=== PATIENT | female | born 1940 | race Caucasian/White ===

== ENCOUNTER 2018-08-08 18:08 | Observation (INO) ==
[2018-08-08] MEDS ORDERED: SODIUM CHLORIDE 0.9% 500 ML IV STA (18:57)
[2018-08-08 19:15] LABS: Basophils % 0.2 % (0.0-0.8); Eosinophils # 0.1 10*3/uL (0.0-0.87); Eosinophils % 1.7 % (0.00-10.9); Hematocrit 36.5 VOL% (35.7-47.0); Hemoglobin 12.1 GM/DL (12.0-16.0); Immature Granulocytes % 0.3 %; Immature Granulocytes Absolute 0.02 #; Lymphocytes # 1.7 10*3/uL (1.4-4.0); Lymphocytes % 25.7 % (21.3-54.2); Mean Corpuscular HGB Conc 33.2 GM/DL (32-36); Mean Corpuscular Hemoglobin 32 PG (27-34); Mean Corpuscular Volume 97.6 FL (87-102); Mean Platelet Volume 10.3 FL (9.6-12.0); Monocytes # 0.4 10*3/uL (0.11-0.8); Neutrophils # 4.4 10*3/uL (1.4-7.4); Neutrophils % 66.1 % (38.7-73.9); Platelet Count 166 T/CUMM (130-400); Red Blood Count 3.74 MC/CUMM (3.8-5.5); Red Cell Distribution Width 12.4 % (9.3-17.3); White Blood Count 6.6 T/CUMM (4-12)
[2018-08-08 19:18] LABS: Apearance,Urine CLEAR (Clear); Bacteria,Urine Occasional /HPF (Few); Bilirubin,Urine Negative (Negative); Blood, Urine Negative (Negative); Glucose,Urine (UA) Negative (Negative); Ketones,Urine Negative (Negative); Nitrite,Urine Negative (Negative); Protein,Urine Negative; RBC,Urine <1 /HPF (0-4); Urine Color Yellow (Yellow); WBC,Urine 1 /HPF (0-6)
[2018-08-08 19:24] LABS: INR 0.9; PT Patient Result 10.1 SECS
[2018-08-08 19:25] LABS: Alanine Aminotransferase 14 U/L (13-56); Albumin 3.9 G/DL (3.4-5.0); Alkaline Phosphatase 74 U/L (45-117); Aspartate Amino Transferase 14 U/L (0-37); Barbiturates Screen,Urine Negative (Negative); Benzodiazepines Screen,Urine Negative (Negative); Blood Urea Nitrogen 19 MG/DL (7-18); Calcium 9.4 MG/DL (8.5-10.1); Cannabinoid Screen,Urine Negative (Negative); Glucose 81 MG/DL (74-106); Opiate Screen,Urine Negative (Negative); Osmolality,Calculated 279.4 MOS/KG (273-304); Phencyclidine Screen,Urine Negative (Negative); Potassium 3.4 MMOL/L (3.5-5.1); Sodium 140 MMOL/L (136-145); Total Protein 7.2 G/DL (6.4-8.3)
[2018-08-08] MEDS ORDERED: ONDANSETRON 4 MG/2 ML VIAL IV PRN (21:23)
[2018-08-08] MEDS ORDERED: LABETALOL 20 MG/4 ML SYRINGE IV PRN (21:27)
[2018-08-08] MEDS ORDERED: ENOXAPARIN 30 MG/0.3 ML SYRINGE SUBCUT SCH (21:30)
[2018-08-08 21:48] LABS: Risk Ratio 2.07; VLDL CHOLESTEROL 20.8 MG/DL
[2018-08-08] MEDS: SODIUM CHLORIDE 0.9% 1,000 ML IV SCH (22:50)
[2018-08-09 04:51] LABS: Basophils % 0.2 % (0.0-0.8); Eosinophils % 0.3 % (0.00-10.9); Hematocrit 32.7 VOL% (35.7-47.0); Hemoglobin 11.1 GM/DL (12.0-16.0); Immature Granulocytes % 0.3 %; Immature Granulocytes Absolute 0.03 #; Lymphocytes # 1.6 10*3/uL (1.4-4.0); Lymphocytes % 18.2 % (21.3-54.2); Mean Corpuscular HGB Conc 33.9 GM/DL (32-36); Mean Corpuscular Hemoglobin 33 PG (27-34); Mean Corpuscular Volume 95.6 FL (87-102); Monocytes # 0.6 10*3/uL (0.11-0.8); Monocytes % 6.4 % (1.7-12.7); Neutrophils # 6.5 10*3/uL (1.4-7.4); Neutrophils % 74.6 % (38.7-73.9); Platelet Count 152 T/CUMM (130-400); Red Blood Count 3.42 MC/CUMM (3.8-5.5); Red Cell Distribution Width 12.1 % (9.3-17.3); White Blood Count 8.7 T/CUMM (4-12)
[2018-08-09 05:08] LABS: Calcium 8.1 MG/DL (8.5-10.1); Osmolality,Calculated 281.3 MOS/KG (273-304); Potassium 3.4 MMOL/L (3.5-5.1)
[2018-08-09] MEDS ORDERED: ASPIRIN EC 81 MG TABLET PO SCH ×2 (09:00)
[2018-08-09] MEDS ORDERED: POTASSIUM CHLORIDE 10 MEQ TABLET PO SCH (09:00)
[2018-08-09] MEDS ORDERED: DICYCLOMINE 10 MG CAPSULE PO SCH (09:00)
[2018-08-09] MEDS ORDERED: NON-FORMULARY MEDICATION (Omeprazole [Omeprazole] 20 MG) PO SCH (09:00)
[2018-08-09] MEDS ORDERED: PANTOPRAZOLE 40 MG VIAL IV SCH (09:00)
[2018-08-09] MEDS: SODIUM CHLORIDE 0.9% 1,000 ML IV SCH (09:16)
[2018-08-09 16:27] VITALS: BP 157/61
[2018-08-09] MEDS ORDERED: CHOLECALCIFEROL 1,000 UNIT TABLET PO SCH (21:00)
[2018-08-09] MEDS ORDERED: ESCITALOPRAM 10 MG TABLET PO SCH (21:00)
[2018-10-02] MEDS ORDERED: DENOSUMAB 60 MG/ML SYRINGE SUBCUT SCH (09:00)
== END 2018-08-09 18:00 ==
LOC: N.EDINP 18:08 → N.ED 18:08 → N.5E 21:50
PROVIDERS: ADMIT Internal Medicine; ATTEND Internal Medicine

== ENCOUNTER 2019-03-21 12:14 | Inpatient (IN) ==
[2019-03-21] MEDS ORDERED: SODIUM CHLORIDE 0.9% 1,000 ML IV STA (13:16)
[2019-03-21 13:33] LABS: Apearance,Urine CLEAR (Clear); Bilirubin,Urine Negative (Negative); Blood, Urine Negative (Negative); Glucose,Urine (UA) Negative (Negative); Hyaline Casts,Urine 1 /LPF (0-3); Ketones,Urine Negative (Negative); Mucus,Urine Occasional /LPF (Occasional); Nitrite,Urine Negative (Negative); Protein,Urine 30 MG/DL; RBC,Urine 1 /HPF (0-4); Squamous Epithelial Cell,Urine Occasional /HPF (0-10); Urine Color Yellow (Yellow); Urine Specific Gravity 1.019 (1.001-1.035); Urine Urobilinogen < 2.0 EU/DL (0.2-1.0); WBC,Urine 1 /HPF (0-6)
[2019-03-21 13:45] LABS: Barbiturates Screen,Urine Negative (Negative); Benzodiazepines Screen,Urine Negative (Negative); Cannabinoid Screen,Urine Negative (Negative); Opiate Screen,Urine Negative (Negative); Phencyclidine Screen,Urine Negative (Negative)
[2019-03-21 16:46] LABS: Basophils % 0.1 % (0.0-0.8); Eosinophils # 0.1 10*3/uL (0.0-0.87); Eosinophils % 0.6 % (0.00-10.9); Hematocrit 40.7 VOL% (35.7-47.0); Hemoglobin 13.9 GM/DL (12.0-16.0); Immature Granulocytes % 0.3 %; Immature Granulocytes Absolute 0.03 #; Lymphocytes # 2.3 10*3/uL (1.4-4.0); Lymphocytes % 20.5 % (21.3-54.2); Mean Corpuscular HGB Conc 34.2 GM/DL (32-36); Mean Corpuscular Volume 96.2 FL (87-102); Mean Platelet Volume 11.2 FL (9.6-12.0); Monocytes % 4.6 % (1.7-12.7); Neutrophils % 73.9 % (38.7-73.9); Platelet Count 201 T/CUMM (130-400); Red Blood Count 4.23 MC/CUMM (3.8-5.5); White Blood Count 11.4 T/CUMM (4-12)
[2019-03-21 16:52] LABS: INR 0.9; PT Patient Result 10.2 SECS (9.6-12.2); Partial Thromboplastin Time 25.9 SECS (20.8-36.0)
[2019-03-21 17:00] LABS: Alanine Aminotransferase 23 U/L (13-56); Albumin 4.2 G/DL (3.4-5.0); Alkaline Phosphatase 62 U/L (45-117); Aspartate Amino Transferase 18 U/L (0-37); Blood Urea Nitrogen 30 MG/DL (7-18); Estimated Glom Filtration Rate 32 ML/MIN; Glucose 94 MG/DL (74-106); Osmolality,Calculated 286.3 MOS/KG (273-304); Total Protein 7.1 G/DL (6.4-8.3)
[2019-03-21] MEDS ORDERED: ONDANSETRON 4 MG/2 ML VIAL IV PRN (17:02)
[2019-03-21] MEDS ORDERED: LABETALOL 20 MG/4 ML SYRINGE IV PRN (17:02)
[2019-03-21] MEDS ORDERED: SODIUM CHLORIDE 0.9% 1,000 ML IV SCH (17:30)
[2019-03-21 17:41] LABS: VLDL CHOLESTEROL 32.8 MG/DL
[2019-03-21] MEDS: ATORVASTATIN 80 MG TABLET PO SCH (20:13)
[2019-03-21] MEDS: SODIUM CHLORIDE 0.9% 1,000 ML IV SCH (20:33)
[2019-03-21] MEDS ORDERED: INFLUENZA VIRUS VACCINE 0.5 ML SYRINGE IM ONE (23:41)
[2019-03-22] MEDS: SODIUM CHLORIDE 0.9% 1,000 ML IV SCH ×2 (05:19→16:36)
[2019-03-22] MEDS: LEVOTHYROXINE 25 MCG TABLET PO SCH (05:52)
[2019-03-22 06:50] LABS: Basophils % 0.1 % (0.0-0.8); Eosinophils % 0.2 % (0.00-10.9); Hematocrit 33.5 VOL% (35.7-47.0); Immature Granulocytes % 0.2 %; Immature Granulocytes Absolute 0.02 #; Lymphocytes # 1.9 10*3/uL (1.4-4.0); Lymphocytes % 20.9 % (21.3-54.2); Mean Corpuscular HGB Conc 34.6 GM/DL (32-36); Mean Corpuscular Volume 93.6 FL (87-102); Monocytes % 6.4 % (1.7-12.7); Neutrophils % 72.2 % (38.7-73.9); Platelet Count 174 T/CUMM (130-400); Red Blood Count 3.58 MC/CUMM (3.8-5.5); Red Cell Distribution Width 12.7 % (9.3-17.3); White Blood Count 8.9 T/CUMM (4-12)
[2019-03-22 06:54] LABS: Hemoglobin 11.6 GM/DL (12.0-16.0)
[2019-03-22 06:59] LABS: Albumin 3.2 G/DL (3.4-5.0); Bilirubin,Total 1.9 MG/DL (0.2-1.0); Calcium 8.4 MG/DL (8.5-10.1); Osmolality,Calculated 282.4 MOS/KG (273-304); Thyroid Stimulating Hormone 1.36 uIU/ml (0.358-3.74)
[2019-03-22] MEDS ORDERED: MAGNESIUM SULF RIDER 4 GM in PREMIX 1 EACH IV PRN (07:20)
[2019-03-22] MEDS ORDERED: MAGNESIUM SULF RIDER 2 GM in PREMIX 1 EACH IV PRN (07:20)
[2019-03-22] MEDS ORDERED: ASPIRIN 325 MG TABLET PO SCH (09:00)
[2019-03-22] MEDS: CLOPIDOGREL 75 MG TABLET PO SCH (09:20)
[2019-03-22] MEDS: PANTOPRAZOLE 40 MG TABLET PO SCH (09:20)
[2019-03-22] MEDS ORDERED: hydrALAZINE 20 MG/1 ML VIAL IV PRN (10:05)
[2019-03-22] MEDS: POTASSIUM CHLORIDE RIDER 10 MEQ in PREMIX 1 EACH IV PRN ×2 (12:17→15:33)
[2019-03-22] MEDS ORDERED: POTASSIUM CHLORIDE 20 MEQ TABLET PO ONE (15:36)
[2019-03-22] MEDS ORDERED: amLODIPine 5 MG TABLET PO SCH (16:00)
[2019-03-22] MEDS: amLODIPine 5 MG TABLET PO SCH (16:41)
[2019-03-22] MEDS ORDERED: GABAPENTIN 100 MG CAPSULE PO SCH (21:00)
[2019-03-22] MEDS ORDERED: ESCITALOPRAM 10 MG TABLET PO SCH (21:00)
[2019-03-22] MEDS: ATORVASTATIN 80 MG TABLET PO SCH (21:18)
[2019-03-23] MEDS: LEVOTHYROXINE 25 MCG TABLET PO SCH (06:26)
[2019-03-23 06:35] LABS: Albumin 3.2 G/DL (3.4-5.0); Bilirubin,Total 0.7 MG/DL (0.2-1.0); Calcium 8.1 MG/DL (8.5-10.1); Osmolality,Calculated 281.4 MOS/KG (273-304); Total Protein 6.1 G/DL (6.4-8.3)
[2019-03-23 08:12] LABS: Basophils % 0.1 % (0.0-0.8); Eosinophils # 0.1 10*3/uL (0.0-0.87); Eosinophils % 0.6 % (0.00-10.9); Hemoglobin 11.6 GM/DL (12.0-16.0); Immature Granulocytes % 0.4 %; Immature Granulocytes Absolute 0.04 #; Lymphocytes # 1.4 10*3/uL (1.4-4.0); Lymphocytes % 13.7 % (21.3-54.2); Mean Corpuscular HGB Conc 34.1 GM/DL (32-36); Mean Corpuscular Volume 96.3 FL (87-102); Mean Platelet Volume 10.6 FL (9.6-12.0); Monocytes % 4.3 % (1.7-12.7); Neutrophils % 80.9 % (38.7-73.9); Platelet Count 152 T/CUMM (130-400); Red Blood Count 3.53 MC/CUMM (3.8-5.5); Red Cell Distribution Width 13.1 % (9.3-17.3)
[2019-03-23] MEDS: PANTOPRAZOLE 40 MG TABLET PO SCH (08:38)
[2019-03-23] MEDS: amLODIPine 5 MG TABLET PO SCH (08:38)
[2019-03-23] MEDS: CLOPIDOGREL 75 MG TABLET PO SCH (08:38)
[2019-03-23] MEDS ORDERED: PANTOPRAZOLE 40 MG TABLET PO SCH (09:00)
[2019-03-23] MEDS ORDERED: ASPIRIN EC 81 MG TABLET PO SCH (09:00)
[2019-03-23 11:21] VITALS: BP 169/75
== END 2019-03-23 12:30 | disposition home health service (06) | DRG 69 ==
LOC: N.ED 12:14 → N.EDINP 17:02 → N.4E 19:31
PROVIDERS: ADMIT Internal Medicine; ATTEND Internal Medicine